=== PATIENT | female | born 1950 | race Caucasian/White ===

== ENCOUNTER → 2018-07-24 | Outpatient (CLI) | payer MEDICARE ==
[2018-07-24 12:38] LABS: CALCIUM 9.6 mg/dL (8.5-10.1); CREATININE 0.9 mg/dL (0.6-1.0); GFR 62.8; POTASSIUM 3.4 mmol/L (3.5-5.1)
[2018-07-24 12:40] LABS: CHOLESTEROL/HDL RATIO 8.2
[2018-07-25 12:17] LABS: HEMOGLOBIN A1C 5.8 % (4.8-5.6)
== END | disposition home or self-care (01) ==
LOC: LAB 10:58
PROVIDERS: ATTEND Internal Medicine
DX: I10 Essential (primary) hypertension (principal); E78.5 Hyperlipidemia, unspecified; R20.9 Unspecified disturbances of skin sensation; R73.09 Other abnormal glucose
CPT/HCPCS: 36415; 80048; 80061; 82607; 83036; 84443